=== PATIENT | female | born 1935 | race African-American/Black ===

== ENCOUNTER 2023-06-18 20:35 | Inpatient (IN) | payer OTHER ==
[~2023-06-18] VITALS: Ht 152.4 cm; Wt 37.2 kg
[2023-06-18 20:36] VITALS: BP 142/88; PULSE 115; RESP 22; TEMP 97.2; O2SAT 95
[2023-06-18] MEDS ORDERED: cefTRIAXone 1,000 MG in DEXT 5% MINI-BAG PLUS 50 ML IV ONE (20:40)
[2023-06-18] MEDS ORDERED: NACL 0.9% 1,000 ML IV SCH (20:40)
[2023-06-18] MEDS ORDERED: LEVOFLOXACIN 500 MG/D5W PREMIX 100 ML IV ONE (20:45)
[2023-06-18] MEDS ORDERED: cefTRIAXone 1,000 MG VIAL ONE (21:11)
[2023-06-18 21:22] LABS: BASOPHILS % (AUTO) 0.1 % (0.0-2.0); HEMATOCRIT 36.9 % (36-48); HEMOGLOBIN 12.4 g/dL (12.0-16.0); LYMPHOCYTES # (AUTO) 0.7 K/uL (2.5-16.5); LYMPHOCYTES % (AUTO) 6.2 % (20.5-51.1); MEAN CORPUSCULAR HEMOGLOBIN 33 pg (27-31); MEAN CORPUSCULAR HGB CONC 34 g/dL (33-37); MEAN CORPUSCULAR VOLUME 96.5 fL (80-94); MONOCYTES # (AUTO) 0.6 K/uL (0.8-1.0); MONOCYTES % (AUTO) 4.8 % (1.7-9.3); NEUTROPHILS # (AUTO) 10.4 K/uL (1.8-7.7); NEUTROPHILS % (AUTO) 88.9 % (42.2-75.2); PLATELET COUNT (AUTO) 31 K/uL (140-450); RED BLOOD CELL COUNT(AUTO) 3.82 MIL/uL (4.20-5.40); RED CELL DISTRIBUTION WIDTH 14.9 % (11.6-13.7); WHITE BLOOD COUNT (AUTO) 11.6 K/uL (4.8-10.8)
[2023-06-18 21:28] LABS: ANION GAP 19.1 (8-16); CALCIUM 10.2 mg/dL (8.5-10.1); CARBON DIOXIDE 23.3 mmol/L (21-32); CHLORIDE 110 mmol/L (98-107); CREATININE 1.2 mg/dL (0.6-1.3); GLUCOSE 146 mg/dL (74-106); POTASSIUM 4.4 mmol/L (3.5-5.1); SODIUM SERUM 148 mmol/L (136-145); UREA NITROGEN, BLOOD 47 mg/dL (7-18)
[2023-06-18 21:36] LABS: FLU A ANTIGEN negative (NEGATIVE)
[2023-06-18 21:40] LABS: FLU B ANTIGEN POSITIVE (NEGATIVE)
[2023-06-18 21:40] LABS: LACTIC ACID 2.3 mmol/L (0.4-2.0)
[2023-06-18 22:51] LABS: INR 1.85 (0.8-1.2); PROTHROMBIN TIME 18.9 secs (10.8-13.4)
[2023-06-18] MEDS ORDERED: OSELTAMIVIR PHOSPHATE 75 MG CAP PO ONE (23:00)
[2023-06-18 23:11] LABS: PARTIAL THROMBOPLASTIN TIME 20.1 secs (22-35.6)
[2023-06-19] MEDS ORDERED: LIDOCAINE/EPI 2% 1:100000 20 ML VIAL INJ ONE (01:45)
[2023-06-19] MEDS ORDERED: NACL 0.9% 1,000 ML IV ONE (03:40)
[2023-06-19] MEDS ORDERED: PHYTONADIONE 5 MG in NACL 0.9% 50 ML IV ONE (04:35)
[2023-06-19] MEDS ORDERED: PHYTONADIONE 10 MG/ML AMP ONE (05:05)
[2023-06-19] MEDS ORDERED: KCL 20 MEQ IN 100 mL PREMIX 200 ML IV PRN (05:45)
[2023-06-19] MEDS ORDERED: MORPHINE SULFATE 4 MG/ML SYR IVP PRN (05:45)
[2023-06-19] MEDS ORDERED: POTASSIUM CHLORIDE 10 MEQ TABER PO PRN (05:45)
[2023-06-19] MEDS ORDERED: VANCOMYCIN PER PHARMACY MC PRN (05:45)
[2023-06-19] MEDS ORDERED: HYDROcodone/APAP 5/325 MG 1 TAB TAB PO PRN (05:45)
[2023-06-19] MEDS ORDERED: ONDANSETRON 4 MG/2 ML VIAL IVP PRN (05:45)
[2023-06-19] MEDS ORDERED: ACETAMINOPHEN 325 MG TAB PO PRN (05:45)
[2023-06-19 06:56] LABS: BILIRUBIN,URINE NEGATIVE (NEGATIVE); BLOOD, URINE 2+ (NEGATIVE); COLOR,URINE YELLOW (YELLOW); LEUKOCYTE ESTERASE ,URINE NEGATIVE (NEGATIVE); NITRITE, URINE POSITIVE (NEGATIVE); PH,URINE 5.5 (5.0-9.0); PROTEIN,URINE 2+ (NEGATIVE); UGLUCOSE NEGATIVE (NEGATIVE); UROBILINOGEN,URINE 0.2 EU/dL (0.2 - 1)
[2023-06-19] MEDS ORDERED: VANCOMYCIN 1,000 MG in DEXTROSE 5% 250 ML IV SCH (07:30)
[2023-06-19 08:02] LABS: SQUAMOUS EPITHELIAL CELL,UR 0-3 (FEW) /LPF (0-3 (FEW)); WBC,URINE 0-5 /HPF (0-5)
[2023-06-19 08:03] LABS: BACTERIA,URINE 1+ /HPF (None Seen)
[2023-06-19 08:04] LABS: APPEARANCE,URINE HAZY (CLEAR)
[2023-06-19] MEDS: DOCUSATE SODIUM 100 MG GELCAP PO SCH (09:00)
[2023-06-19] MEDS ORDERED: VANCOMYCIN 1,000 MG VIAL ONE (09:44)
[2023-06-19] MEDS: CEFEPIME 1,000 MG in DEXTROSE 5% 50 ML IV SCH ×2 (11:38→21:11)
[2023-06-19] MEDS: NACL 0.9% 1,000 ML IV SCH (12:51)
[2023-06-19 17:08] LABS: GLUCOSE,BODY FLUID 86 mg/dL; PROTEIN, BODY FLUID 5.3 g/dL; TOTAL VOLUME,BODY FLUID 14 mL
[2023-06-19] MEDS ORDERED: CEFEPIME 1,000 MG VIAL ONE (21:05)
[2023-06-19 21:15] LABS: APPEARANCE,SPUN,BODY FLUID CLEAR (CLEAR); APPEARANCE,UNSPUN,BODY FLUID BLOODY (CLEAR); COLOR,BODY FLUID RED (LT YELLOW); POLYNUCLEAR, BODY FLUID 86 %; RBC, BODY FLUID 380000 /cu. mm.; SPECIMENTYPE,BODY FLUID PLEURAL; WBC, BODY FLUID 1500 /cu. mm.
[2023-06-19 21:40] VITALS: PULSE 130; RESP 22; O2SAT 97
[2023-06-19 22:00] VITALS: BP 126/73; PULSE 120; PULSE 127; RESP 20; TEMP 97; O2SAT 99
[2023-06-19 23:00] VITALS: BP 146/85; PULSE 134; RESP 19; O2SAT 97
[2023-06-20] VITALS (17 sets, daily range): BP systolic 116–144; BP diastolic 49–94; PULSE 116–134; RESP 22–37; TEMP 96.5–98.7; O2SAT 91–100
[2023-06-20] MEDS: NACL 0.9% 1,000 ML IV SCH ×2 (02:29→06:45)
[2023-06-20 05:19] LABS: BASOPHILS % (AUTO) 0.3 % (0.0-2.0); HEMATOCRIT 23.6 % (36-48); HEMOGLOBIN 7.8 g/dL (12.0-16.0); LYMPHOCYTES # (AUTO) 1.1 K/uL (2.5-16.5); LYMPHOCYTES % (AUTO) 7.9 % (20.5-51.1); MEAN CORPUSCULAR HEMOGLOBIN 33 pg (27-31); MEAN CORPUSCULAR HGB CONC 33 g/dL (33-37); MEAN CORPUSCULAR VOLUME 98.7 fL (80-94); MONOCYTES # (AUTO) 0.7 K/uL (0.8-1.0); MONOCYTES % (AUTO) 5.1 % (1.7-9.3); NEUTROPHILS % (AUTO) 86.7 % (42.2-75.2); RED BLOOD CELL COUNT(AUTO) 2.39 MIL/uL (4.20-5.40); WHITE BLOOD COUNT (AUTO) 13.9 K/uL (4.8-10.8)
[2023-06-20 05:33] LABS: ALANINE AMINOTRANSFERASE 38 U/L (12-78); ALBUMIN 2.3 g/dL (3.4-5.0); ALKALINE PHOSPHATASE 43 U/L (50-136); ANION GAP 20.7 (8-16); ASPARTATE AMINOTRANSFERASE 75 U/L (15-37); CALCIUM 7.6 mg/dL (8.5-10.1); CARBON DIOXIDE 17.3 mmol/L (21-32); CHLORIDE 121 mmol/L (98-107); CREATININE 1.1 mg/dL (0.6-1.3); GLUCOSE 132 mg/dL (74-106); MAGNESIUM 2.2 mg/dL (1.8-2.4); TOTAL BILIRUBIN 1.3 mg/dL (0.0-1.0); TOTAL PROTEIN, SERUM 5.6 g/dL (6.4-8.2); UREA NITROGEN, BLOOD 51 mg/dL (7-18)
[2023-06-20 05:34] LABS: PLATELET COUNT (AUTO) 10 K/uL (140-450)
[2023-06-20 05:35] LABS: SODIUM SERUM 156 mmol/L (136-145)
[2023-06-20] MEDS: DEXTROSE 5% 1,000 ML IV SCH ×2 (07:10→20:30)
[2023-06-20] MEDS: DOCUSATE SODIUM 100 MG GELCAP PO SCH (09:00)
[2023-06-20] MEDS: VANCOMYCIN 500 MG in DEXTROSE 5% 100 ML IV SCH (09:31)
[2023-06-20] MEDS: CEFEPIME 1,000 MG in DEXTROSE 5% 50 ML IV SCH ×2 (10:46→20:27)
[2023-06-21] VITALS (12 sets, daily range): BP systolic 111–140; BP diastolic 53–76; PULSE 58–130; RESP 18–35; TEMP 96.8–98.3; O2SAT 90–99
[2023-06-21] MEDS: DEXTROSE 5% 1,000 ML IV SCH ×2 (02:19→23:10)
[2023-06-21 05:27] LABS: BASOPHILS % (AUTO) 0.1 % (0.0-2.0); HEMATOCRIT 29.3 % (36-48); HEMOGLOBIN 9.6 g/dL (12.0-16.0); LYMPHOCYTES # (AUTO) 1.1 K/uL (2.5-16.5); LYMPHOCYTES % (AUTO) 6.7 % (20.5-51.1); MEAN CORPUSCULAR HEMOGLOBIN 32 pg (27-31); MEAN CORPUSCULAR HGB CONC 33 g/dL (33-37); MEAN CORPUSCULAR VOLUME 97.1 fL (80-94); NEUTROPHILS # (AUTO) 14.2 K/uL (1.8-7.7); NEUTROPHILS % (AUTO) 87.2 % (42.2-75.2); RED BLOOD CELL COUNT(AUTO) 3.02 MIL/uL (4.20-5.40); RED CELL DISTRIBUTION WIDTH 15.3 % (11.6-13.7); WHITE BLOOD COUNT (AUTO) 16.3 K/uL (4.8-10.8)
[2023-06-21 05:39] LABS: PLATELET COUNT (AUTO) 6 K/uL (140-450)
[2023-06-21 05:54] LABS: ALANINE AMINOTRANSFERASE 50 U/L (12-78); ALBUMIN 2.3 g/dL (3.4-5.0); ALKALINE PHOSPHATASE 48 U/L (50-136); ANION GAP 18.1 (8-16); ASPARTATE AMINOTRANSFERASE 125 U/L (15-37); CALCIUM 8.1 mg/dL (8.5-10.1); CHLORIDE 116 mmol/L (98-107); CREATININE 1.3 mg/dL (0.6-1.3); GLUCOSE 188 mg/dL (74-106); MAGNESIUM 2.7 mg/dL (1.8-2.4); POTASSIUM 4.1 mmol/L (3.5-5.1); SODIUM SERUM 149 mmol/L (136-145); TOTAL BILIRUBIN 1.2 mg/dL (0.0-1.0); TOTAL PROTEIN, SERUM 5.9 g/dL (6.4-8.2); UREA NITROGEN, BLOOD 60 mg/dL (7-18)
[2023-06-21] MEDS: VANCOMYCIN 500 MG in DEXTROSE 5% 100 ML IV SCH (08:18)
[2023-06-21] MEDS: CEFEPIME 1,000 MG in DEXTROSE 5% 50 ML IV SCH ×2 (08:18→20:44)
[2023-06-21] MEDS: DOCUSATE SODIUM 100 MG GELCAP PO SCH (08:21)
[2023-06-21 19:43] LABS: BLOOD GAS PCO2 18.1 mmHg (35-45); BLOOD GAS PH 7.559 (7.35-7.45); BLOOD GAS PO2 80.1 mmHg (75-100)
[2023-06-21 19:44] LABS: BLOOD GAS BASE EXCESS -5.2 mmol/L (-2.0-2.0); BLOOD GAS HCO3 15.8 mmol/L (22-26); BLOOD GAS O2 SAT% 96.4 % (92.0-98.5)
[2023-06-22] VITALS (15 sets, daily range): BP systolic 112–132; BP diastolic 50–81; PULSE 59–140; RESP 24–41; TEMP 97.2–98.4; O2SAT 73–100
[2023-06-22 06:11] LABS: BASOPHILS # (AUTO) 0.1 K/uL (0.00-0.22); BASOPHILS % (AUTO) 0.3 % (0.0-2.0); EOSINOPHILS % (AUTO) 0.1 % (0.0-4.0); HEMATOCRIT 22.9 % (36-48); HEMOGLOBIN 7.7 g/dL (12.0-16.0); LYMPHOCYTES % (AUTO) 8.7 % (20.5-51.1); MEAN CORPUSCULAR HEMOGLOBIN 33 pg (27-31); MEAN CORPUSCULAR HGB CONC 34 g/dL (33-37); MEAN CORPUSCULAR VOLUME 97.2 fL (80-94); MONOCYTES # (AUTO) 0.9 K/uL (0.8-1.0); MONOCYTES % (AUTO) 4.2 % (1.7-9.3); NEUTROPHILS # (AUTO) 19.4 K/uL (1.8-7.7); NEUTROPHILS % (AUTO) 86.7 % (42.2-75.2); PLATELET COUNT (AUTO) 27 K/uL (140-450); RED BLOOD CELL COUNT(AUTO) 2.36 MIL/uL (4.20-5.40); RED CELL DISTRIBUTION WIDTH 14.7 % (11.6-13.7); WHITE BLOOD COUNT (AUTO) 22.4 K/uL (4.8-10.8)
[2023-06-22 06:39] LABS: ALANINE AMINOTRANSFERASE 69 U/L (12-78); ALBUMIN 2.1 g/dL (3.4-5.0); ALKALINE PHOSPHATASE 52 U/L (50-136); ASPARTATE AMINOTRANSFERASE 176 U/L (15-37); CARBON DIOXIDE 17.5 mmol/L (21-32); CHLORIDE 112 mmol/L (98-107); CREATININE 1.3 mg/dL (0.6-1.3); GLUCOSE 142 mg/dL (74-106); MAGNESIUM 2.6 mg/dL (1.8-2.4); POTASSIUM 4.5 mmol/L (3.5-5.1); SODIUM SERUM 145 mmol/L (136-145); TOTAL BILIRUBIN 1.5 mg/dL (0.0-1.0); TOTAL PROTEIN, SERUM 5.7 g/dL (6.4-8.2); UREA NITROGEN, BLOOD 59 mg/dL (7-18)
[2023-06-22] MEDS: DOCUSATE SODIUM 100 MG GELCAP PO SCH (09:00)
[2023-06-22] MEDS: CEFEPIME 1,000 MG in DEXTROSE 5% 50 ML IV SCH ×2 (09:30→21:28)
[2023-06-22] MEDS: VANCOMYCIN 500 MG in DEXTROSE 5% 100 ML IV SCH (10:07)
[2023-06-22] MEDS ORDERED: DIAZEPAM PFS 10 MG/2 ML SYR IVP PRN (11:15)
[2023-06-22] MEDS: DEXTROSE 5% 1,000 ML IV SCH (11:28)
[2023-06-22 11:29] LABS: PLATELET COUNT (AUTO) 60 K/uL (140-450); RED CELL DISTRIBUTION WIDTH 15.1 % (11.6-13.7)
[2023-06-22 11:32] LABS: LYMPHOCYTES # (AUTO) 1.6 K/uL (2.5-16.5); LYMPHOCYTES % (AUTO) 6.7 % (20.5-51.1); MEAN CORPUSCULAR HEMOGLOBIN 32 pg (27-31); MEAN CORPUSCULAR HGB CONC 33 g/dL (33-37); MEAN CORPUSCULAR VOLUME 97.7 fL (80-94); MONOCYTES # (AUTO) 1.3 K/uL (0.8-1.0); MONOCYTES % (AUTO) 5.4 % (1.7-9.3); NEUTROPHILS % (AUTO) 87.9 % (42.2-75.2); RED BLOOD CELL COUNT(AUTO) 2.15 MIL/uL (4.20-5.40); WHITE BLOOD COUNT (AUTO) 23.9 K/uL (4.8-10.8)
[2023-06-22 11:45] LABS: HEMOGLOBIN 6.9 g/dL (12.0-16.0)
[2023-06-22 13:00] LABS: LYMPHOCYTES # (AUTO) 1.7 K/uL (2.5-16.5); LYMPHOCYTES % (AUTO) 7.1 % (20.5-51.1); MEAN CORPUSCULAR HEMOGLOBIN 32 pg (27-31); MEAN CORPUSCULAR HGB CONC 33 g/dL (33-37); MEAN CORPUSCULAR VOLUME 96.6 fL (80-94); MONOCYTES # (AUTO) 1.6 K/uL (0.8-1.0); MONOCYTES % (AUTO) 6.5 % (1.7-9.3); NEUTROPHILS # (AUTO) 20.7 K/uL (1.8-7.7); NEUTROPHILS % (AUTO) 86.4 % (42.2-75.2); PLATELET COUNT (AUTO) 44 K/uL (140-450); RED BLOOD CELL COUNT(AUTO) 1.97 MIL/uL (4.20-5.40); RED CELL DISTRIBUTION WIDTH 15.1 % (11.6-13.7)
[2023-06-22 13:11] LABS: ANION GAP 15.9 (8-16); CALCIUM 7.7 mg/dL (8.5-10.1); CHLORIDE 113 mmol/L (98-107); CREATININE 1.3 mg/dL (0.6-1.3); GLUCOSE 156 mg/dL (74-106); POTASSIUM 3.9 mmol/L (3.5-5.1); SODIUM SERUM 142 mmol/L (136-145); UREA NITROGEN, BLOOD 60 mg/dL (7-18)
[2023-06-22 13:13] LABS: HEMOGLOBIN 6.4 g/dL (12.0-16.0)
[2023-06-22 13:16] LABS: INR 1.51 (0.8-1.2); PARTIAL THROMBOPLASTIN TIME 31.4 secs (22-35.6); PROTHROMBIN TIME 15.5 secs (10.8-13.4)
[2023-06-22 13:29] LABS: HEMATOCRIT 19.1 % (36-48)
[2023-06-22 21:48] LABS: EOSINOPHILS % (AUTO) 0.1 % (0.0-4.0); MEAN CORPUSCULAR HEMOGLOBIN 32 pg (27-31); MEAN CORPUSCULAR HGB CONC 28 g/dL (33-37); RED CELL DISTRIBUTION WIDTH 19.3 % (11.6-13.7)
[2023-06-22 22:01] LABS: HEMATOCRIT 26.2 % (36-48); RED BLOOD CELL COUNT(AUTO) 2.74 MIL/uL (4.20-5.40); WHITE BLOOD COUNT (AUTO) 31.7 K/uL (4.8-10.8)
[2023-06-22 22:02] LABS: LYMPHOCYTES % (AUTO) 8.1 % (20.5-51.1); MEAN CORPUSCULAR VOLUME 95.7 fL (80-94); NEUTROPHILS % (AUTO) 85.1 % (42.2-75.2); PLATELET COUNT (AUTO) 20 K/uL (140-450)
[2023-06-22 22:03] LABS: BASOPHILS # (AUTO) 0.2 K/uL (0.00-0.22); BASOPHILS % (AUTO) 0.7 % (0.0-2.0); LYMPHOCYTES # (AUTO) 2.6 K/uL (2.5-16.5); MONOCYTES # (AUTO) 1.9 K/uL (0.8-1.0)
[2023-06-23] VITALS (8 sets, daily range): BP systolic 114–143; BP diastolic 48–56; PULSE 88–190; RESP 24–40; TEMP 96.3–96.9; O2SAT 97–100
[2023-06-23] MEDS: DEXTROSE 5% 1,000 ML IV SCH (01:50)
[2023-06-23] MEDS: DOCUSATE SODIUM 100 MG GELCAP PO SCH (07:12)
[2023-06-23] MEDS: CEFEPIME 1,000 MG in DEXTROSE 5% 50 ML IV SCH (08:30)
[2023-06-23 08:40] LABS: EOSINOPHILS # (AUTO) 0.1 K/uL (0-0.4); EOSINOPHILS % (AUTO) 0.2 % (0.0-4.0); HEMATOCRIT 24.7 % (36-48); HEMOGLOBIN 8.3 g/dL (12.0-16.0); LYMPHOCYTES # (AUTO) 3.2 K/uL (2.5-16.5); LYMPHOCYTES % (AUTO) 8.6 % (20.5-51.1); MEAN CORPUSCULAR HEMOGLOBIN 32 pg (27-31); MEAN CORPUSCULAR HGB CONC 34 g/dL (33-37); MEAN CORPUSCULAR VOLUME 94.5 fL (80-94); MONOCYTES # (AUTO) 2.5 K/uL (0.8-1.0); MONOCYTES % (AUTO) 6.7 % (1.7-9.3); NEUTROPHILS # (AUTO) 31.6 K/uL (1.8-7.7); NEUTROPHILS % (AUTO) 84.5 % (42.2-75.2); RED BLOOD CELL COUNT(AUTO) 2.61 MIL/uL (4.20-5.40); RED CELL DISTRIBUTION WIDTH 15.2 % (11.6-13.7)
[2023-06-23 09:09] LABS: PLATELET COUNT (AUTO) 18 K/uL (140-450); WHITE BLOOD COUNT (AUTO) 37.4 K/uL (4.8-10.8)
[2023-06-23 09:11] LABS: ALANINE AMINOTRANSFERASE 85 U/L (12-78); ALBUMIN 1.9 g/dL (3.4-5.0); ALKALINE PHOSPHATASE 53 U/L (50-136); ANION GAP 18.7 (8-16); ASPARTATE AMINOTRANSFERASE 275 U/L (15-37); CALCIUM 7.7 mg/dL (8.5-10.1); CARBON DIOXIDE 16.9 mmol/L (21-32); CHLORIDE 110 mmol/L (98-107); CREATININE 1.7 mg/dL (0.6-1.3); GLUCOSE 149 mg/dL (74-106); MAGNESIUM 2.6 mg/dL (1.8-2.4); POTASSIUM 4.6 mmol/L (3.5-5.1); SODIUM SERUM 141 mmol/L (136-145); TOTAL BILIRUBIN 1.5 mg/dL (0.0-1.0); TOTAL PROTEIN, SERUM 5.5 g/dL (6.4-8.2)
[2023-06-23 09:14] LABS: UREA NITROGEN, BLOOD 76 mg/dL (7-18)
[2023-06-23] MEDS: VANCOMYCIN 500 MG in DEXTROSE 5% 100 ML IV SCH (09:29)
[2023-06-23] MEDS ORDERED: LORazepam 2 MG/ML VIAL IVP PRN (13:40)
[2023-06-23] MEDS ORDERED: SCOPOLAMINE 1.5 MG/72 HR PATCH TD PRN (13:40)
[2023-06-23] MEDS ORDERED: HYOSCYAMINE 0.125 MG TAB SL PRN (13:40)
[2023-06-23] MEDS ORDERED: ONDANSETRON 4 MG/2 ML VIAL IVP PRN (13:40)
[2023-06-23] MEDS ORDERED: HYDROmorphone PFS 2 MG/ML SYR IVP PRN (13:40)
[2023-06-23] MEDS ORDERED: MORPHINE SULFATE 50 MG in NACL 0.9% 45 ML IV SCH (13:45)
== END 2023-06-24 09:35 | DRG 871 ==
LOC: MED 20:35 → MTU 06-19 05:50 → MIC 06-19 20:19 → MTU 06-21 15:24
PROVIDERS: ADMIT Student in an Organized Health Care Education/Training Program; ATTEND Student in an Organized Health Care Education/Training Program
PROC: 0W9B30Z Drainage of Left Pleural Cavity with Drainage Device, Percutaneous Approach (ICD-10-PCS; principal; 2023-06-19)
PROC: 30233K1 Transfusion of Nonautologous Frozen Plasma into Peripheral Vein, Percutaneous Approach (ICD-10-PCS; 2023-06-19)
PROC: 30233N1 Transfusion of Nonautologous Red Blood Cells into Peripheral Vein, Percutaneous Approach (ICD-10-PCS; 2023-06-22)
DX: A41.9 Sepsis, unspecified organism (principal); G93.41 Metabolic encephalopathy; J96.01 Acute respiratory failure with hypoxia; C78.00 Secondary malignant neoplasm of unspecified lung; E87.0 Hyperosmolality and hypernatremia; N17.9 Acute kidney failure, unspecified; D68.9 Coagulation defect, unspecified; J91.0 Malignant pleural effusion; J10.1 Influenza due to other identified influenza virus with other respiratory manifestations; I46.9 Cardiac arrest, cause unspecified; F03.90 Unspecified dementia, unspecified severity, without behavioral disturbance, psychotic disturbance, mood disturbance, and anxiety; Z66 Do not resuscitate; I10 Essential (primary) hypertension; D69.6 Thrombocytopenia, unspecified; Z20.822 Contact with and (suspected) exposure to COVID-19; E87.6 Hypokalemia; E86.1 Hypovolemia; Z90.12 Acquired absence of left breast and nipple; Z86.73 Personal history of transient ischemic attack (TIA), and cerebral infarction without residual deficits; C50.919 Malignant neoplasm of unspecified site of unspecified female breast
CPT/HCPCS: 32551; 36415; 36600; 70450; 71045; 71250; 72125; 80048; 80053; 80202; 81001; 82803; 82945; 82948; 83605; 83735; 83880; 84157; 84484; 85025; 85610; 85730; 86886; 86900; 86901; 86920; 87040; 87070; 87081; 87086; 89051; 92526; 93005; 96360; 96365; 96367; 99285; 99291; J0692; J0696; J1956; J2001; J2270; J3360; J3370; J3430; J3480; J7060; P9016; P9017; P9035; Q0092